=== PATIENT | female | born 1985 | race Caucasian/White ===

== ENCOUNTER 2020-03-27 10:05 | Day surgery (SDC) | payer BC ==
[~2020-03-27 10:05] MED LIST: Lactated Ringers 1,000 ML IV SCH; Sodium Chloride 0.9% 10 ML SDV IV PRN; Sodium Chloride 0.9% 10 ML Syringe FLUSH PRN; Sodium Chloride 0.9% 2.5 ML Syringe FLUSH PRN; ceFAZolin 2 GM in Premix Bag 1 BAG IV ONE
[2020-03-27] MEDS ORDERED: Propofol 200 MG/20 ML SDV ONE (10:22)
[2020-03-27] MEDS ORDERED: Midazolam 1 MG/ML 2 ML SDV ONE (10:22)
[2020-03-27] MEDS ORDERED: fentaNYL 250 MCG/5 ML SDV ONE (10:22)
[2020-03-27] MEDS ORDERED: Sugammadex Sodium 200 MG/2 ML VIAL ONE (10:27)
--- NOTE | 2020-03-27 10:35 | PCM.PREANE ---
Preanesthetic Assessment - Anesthesia/Transfusion/Family Hx Anesthesia History: Prior Anesthesia Without Reaction Family History of Anesthesia Reaction: No Transfusion History: No Prior Transfusion(s) - Review of Systems General: No Symptoms Pulmonary: No Symptoms Cardiovascular: No Symptoms Gastrointestinal: No Symptoms Neurological: No Symptoms Other: Reports: None - Physical Assessment NPO Status Date: 03/26/20 Height: 5 ft 5 in Weight: 91.172 kg ASA Class: 2 Mental Status: Alert & Oriented x3 Airway Class: Mallampati = 2 ROM/Head Extension: Full Lungs: Clear to Auscultation, Normal Respiratory Effort Cardiovascular: Regular Rate, Regular Rhythm - Allergies Allergies/Adverse Reactions: Allergies Allergy/AdvReac Type Severity Reaction Status Date / Time erythromycin base Allergy tongue Verified 03/24/20 10:00 [From Pediazole] swelling Sulfa (Sulfonamide Allergy tongue Verified 03/24/20 09:59 Antibiotics) swellng sulfisoxazole Allergy tongue Verified 03/24/20 10:00 [From Pediazole] swelling - Blood Blood Available: No - Anesthesia Plan Pre-Op Medication Ordered: Other (started on scop patch last night) - Acknowledgements Anesthesia Type Planned: General Anesthesia Pt an Appropriate Candidate for the Planned Anesthesia: Yes Alternatives and Risks of Anesthesia Discussed w Pt/Guardian: Yes Pt/Guardian Understands and Agrees with Anesthesia Plan: Yes Additional Comments: PMH: hx of post cardiomyopathy, 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, now normal EF, last ech in oct 2019 PLAN: GET PreAnesthesia Questionnaire Other HEENT History: wears glasses/contacts, upper dental braces Cardiovascular History: Reports: Other (See Below) Other Cardiovascular History: cardiopyopathy during puerperium Respiratory History: Reports: None Gastrointestinal History: Reports: Cholelithiasis Genitourinary History: Reports: None [employer] History: Reports: Musculoskeletal History: Reports: None Neurological History: Reports: None Psychiatric History: Reports: Anxiety, Depression Endocrine/Metabolic History: Reports: Obesity/BMI 30+ Hematologic History: Reports: None Immunologic History: Reports: None Oncologic (Cancer) History: Reports: None Dermatologic History: Reports: None - Past Surgical History Head Surgeries/Procedures: Reports: None HEENT Surgical History: Reports: Oral Surgery Cardiovascular Surgical History: Reports: None Respiratory Surgical History: Reports: None GI Surgical History: Reports: None Female Surgical History: Reports: None Endocrine Surgical History: Reports: None Neurological Surgical History: Reports: None Musculoskeletal Surgical History: Reports: Other (See Below) Other Musculoskeletal Surgeries/Procedures:: bunionectomy Oncologic Surgical History: Reports: None Dermatological Surgical History: Reports: None - SUBSTANCE USE Smoking Status *Q: Never Smoker - HOME MEDS Home Medications: Home Meds Cholecalciferol (Vitamin D3) [Vitamin D3] 25 mcg PO DAILY 03/24/20 [History] Copper [Paragard T 380-A] 1 device VAG ONETIME 03/24/20 [History] Sertraline HCl 50 mg PO DAILY 03/24/20 [History] ondansetron HCL [Ondansetron HCl] 4 mg PO ASDIRECTED PRN 03/24/20 [History] - CURRENT (IN HOUSE) MEDS Current Meds: Current Medications Lactated Ringer's (Ringers, Lactated) 1,000 mls @ 125 mls/hr IV ASDIRECTED BHARATH Sodium Chloride (Saline Flush) 10 ml FLUSH ASDIRECTED PRN PRN Reason: Keep Vein Open Sodium Chloride (Saline Flush) 2.5 ml FLUSH ASDIRECTED PRN PRN Reason: Keep Vein Open Sodium Chloride (Normal Saline) 10 ml IV ASDIRECTED PRN PRN Reason: IV Use Sugammadex Sodium (Bridion) Confirm Administered Dose 200 mg .ROUTE .STK-MED ONE Stop: 03/27/20 10:28 Discontinued Medications Fentanyl (Sublimaze) Confirm Administered Dose 250 mcg .ROUTE .STK-MED ONE Stop: 03/27/20 10:23 Cefazolin Sodium/Dextrose 2 gm (/ Premix) 50 mls @ 100 mls/hr IV ONETIME ONE Stop: 03/24/20 10:58 Midazolam HCl (Versed 1 Mg/Ml) Confirm Administered Dose 2 mg .ROUTE .STK-MED ONE Stop: 03/27/20 10:23 Propofol (Diprivan 20 Ml) Confirm Administered Dose 200 mg .ROUTE .STK-MED ONE Stop: 03/27/20 10:23
[2020-03-27] MEDS ORDERED: Bupivacaine 0.5% 30 ML SDV ONE (11:06)
[2020-03-27] MEDS ORDERED: fentaNYL 100 MCG/2 ML SDV IVPUSH PRN (12:22)
[2020-03-27] MEDS ORDERED: Acetaminophen 1,000 MG in Premix Bag 1 BAG IV PRN (12:23)
--- NOTE | 2020-03-27 13:34 | PCM.OPNOTE ---
- General Post-Op/Procedure Note Date of Surgery/Procedure: 03/27/20 Operative Procedure(s): Laparoscopic cholecystectomy Findings: Gallbladder distended containing large stones and encased in surrounding omentum Pre Op Diagnosis: Symptomatic cholelithiasis Post-Op Diagnosis: same Anesthesia Technique: General ET Tube Primary Surgeon: Usha Stewart Fluid Replacement, Intraop: 1,600 Output, Urine Amount: 200 EBL in mLs: 10 Condition: Good
[2020-03-27] MEDS ORDERED: oxyCODONE 5 MG Tab PO ONE (14:21)
[2020-03-27] MEDS ORDERED: HYDROmorphone 2 MG/ML Syringe IVPUSH ONE (14:22)
--- NOTE | 2020-03-27 15:08 | PCM.POSTAN ---
POST ANESTHESIA ASSESSMENT - MENTAL STATUS Mental Status: Alert, Oriented - VITAL SIGNS Vital Signs: Last Vital Signs Temp 97.2 F 03/27/20 13:19 Pulse 59 L 03/27/20 14:02 Resp 11 L 03/27/20 14:02 BP 124/84 03/27/20 14:02 Pulse Ox 99 03/27/20 14:02 - RESPIRATORY Respiratory Status: Respiratory Rate WNL, Airway Patent, O2 Saturation Stable - CARDIOVASCULAR CV Status: Pulse Rate WNL, Blood Pressure Stable - GASTROINTESTINAL GI Status: No Symptoms - POST OP HYDRATION Hydration Status: Adequate & Stable
--- NOTE | 2020-03-27 15:08 | PCM48HPAN ---
Post Anesthesia Note - EVALUATION WITHIN 48HRS OF ANESTHETIC Vital Signs in Normal Range: Yes Patient Participated in Evaluation: Yes Respiratory Function Stable: Yes Airway Patent: Yes Cardiovascular Function Stable: Yes Hydration Status Stable: Yes Pain Control Satisfactory: Yes Nausea and Vomiting Control Satisfactory: Yes Mental Status Recovered: Yes Vital Signs: Last Vital Signs Temp 97.2 F 03/27/20 13:19 Pulse 59 L 03/27/20 14:02 Resp 11 L 03/27/20 14:02 BP 124/84 03/27/20 14:02 Pulse Ox 99 03/27/20 14:02 - COMMENTS/OBSERVATIONS Free Text/Narrative:: no pain or nausea
--- NOTE | 2020-03-27 16:05 | OR ---
SURGEON: USHA MCGRATH MD DATE OF PROCEDURE: 03/27/2020 PREOPERATIVE DIAGNOSIS: Symptomatic cholelithiasis. POSTOPERATIVE DIAGNOSIS: Symptomatic cholelithiasis. PROCEDURE PERFORMED: Laparoscopic cholecystectomy. PRIMARY SURGEON: Usha Mcgrath MD ANESTHESIA: General endotracheal anesthesia. FLUIDS: 1600 mL of crystalloid. URINE OUTPUT: 200 mL. ESTIMATED BLOOD LOSS: 10 mL. FINDINGS: Enlarged and inflamed gallbladder with dense omental adhesions. COMPLICATIONS: None. INDICATIONS: The patient is a 34-year-old female who had recently presented with right upper quadrant pain. It was revealed that she had cholelithiasis and elevated liver enzymes. An MRCP was performed that showed cholelithiasis with no evidence of choledocholithiasis. Repeat LFTs showed decreasing and almost normal AST and ALT. The decision was made to proceed with a laparoscopic, possible open, cholecystectomy. The patient and I discussed the procedure, expected perioperative course, and risks. She verbalized understanding and wishes to proceed. PROCEDURE IN DETAIL: The patient was brought into the OR and placed on the OR table in supine position. A time-out was completed verifying the patient's name, age, date of , allergies, and procedure to be performed. General endotracheal anesthesia was induced. The left arm was tucked to the patient's side and a Wood catheter placed. The abdomen was prepped and draped in usual standard fashion. I anesthetized the infraumbilical fold with 0.5% Marcaine plain. An 11 blade was used to make an incision along the infraumbilical fold. Cautery was used to dissect down to the subcutaneous fat layer. I bluntly dissected down to the fascia. The fascia was elevated with Elodia's and incised sharply with curved Palmer scissors. The peritoneum was identified, elevated with hemostats, and incised sharply as well. Entry of the abdomen was palpated digitally. A 12 mm Yanely trocar was placed into the abdomen. The abdomen was insufflated and a 5 mm 30-degree scope was inserted. I inspected the area underneath my initial trocar placement. No damage to surrounding structures was noted. The patient was placed into reverse Trendelenburg position and airplaned slightly to the left. 5 mm trocars were placed in the following locations under direct visualization; one in the epigastric area, one in the right flank, and one 2 fingerbreadths below the right subcostal margin in the midclavicular line. The dome of the gallbladder was grasped and elevated. There were omental adhesions along the body of the gallbladder. I took these down using hook cautery and blunt dissection. The omentum was densely adhered to the infundibulum. This required more meticulous dissection, but I was able to free up the tissue around the infundibulum. I identified my cystic duct and continued my dissection distally. I was eventually able to clear away the proximal one-third of the cystic plate and identify the cystic artery. I then doubly clipped and ligated my cystic duct. I then placed 1 extra clip on the cystic artery and ligated this as well. The remaining attachments of the gallbladder wall to the gallbladder fossa were taken down using electrocautery. The patient appeared to have some edema along the liver bed consistent with chronic cholecystitis. Once the gallbladder was completely removed from the liver bed, it was placed in an Endo Catch bag and removed through the infraumbilical port site. The 12 mm Yanely trocar was placed back in the abdomen, and I inspected my operative field. I irrigated the abdomen with 1 L of normal saline and suctioned this out. There was a small amount of oozing from the omentum, but the liver bed appeared dry. The clips were in place and there was no evidence of bile leakage. Surgicel was placed over the edge of the omentum and hemostasis was achieved. The 5 mm trocars were removed under direct visualization and the abdomen allowed to desufflate. The fascia at the infraumbilical port site was closed with interrupted 0 Vicryl sutures. The subcutaneous fat layer was closed with interrupted 3-0 Vicryl sutures. The skin was closed with running 4-0 Monocryl stitch. The 5 mm trocar sites were closed with interrupted 4-0 Monocryl suture. Steri-Strips and sterile dressings were applied. The patient tolerated the procedure well, taken to the PACU in stable condition. All counts were complete and correct at the end of the case. GÓMEZ SANDOVAL /[id number]
== END 2020-03-27 17:15 | disposition home or self-care (01) ==
LOC: MW.SDS 10:05
PROVIDERS: ATTEND Surgery
DX: K80.10 Calculus of gallbladder with chronic cholecystitis without obstruction (principal); K82.8 Other specified diseases of gallbladder; I10 Essential (primary) hypertension; R74.0 Nonspecific elevation of levels of transaminase and lactic acid dehydrogenase [LDH]; Z88.2 Allergy status to sulfonamides; Z88.1 Allergy status to other antibiotic agents
CPT/HCPCS: 47562; 81025; A9270; J0131; J1170; J2250; J2704; J3010; J3490; J7120; 00790; 88304